=== PATIENT | male | born 1950 | race Hispanic/Latino ===

== ENCOUNTER 2020-04-01 17:04 | Emergency (ER) | payer OTHER ==
[2020-04-01] MEDS ORDERED: CEFTRIAXONE 1G VIAL ONE (17:52)
[2020-04-01] MEDS ORDERED: LIDOCAINE HCL-MPF 1% 2ML VIAL ONE (17:52)
[2020-04-01] MEDS ORDERED: DEXAMETHASONE SOD PHOSPHATE 10MG/ML 1ML VIAL ONE (17:52)
== END 2020-04-01 19:08 | disposition home or self-care (01) ==
LOC: EDH 17:04
DX: H61.22 Impacted cerumen, left ear (principal); H65.02 Acute serous otitis media, left ear; E11.9 Type 2 diabetes mellitus without complications
CPT/HCPCS: 96372 ×2; 99284; J0696; J1100; J3490